=== PATIENT | male | born 1965 | race Caucasian/White ===

== ENCOUNTER 2018-04-16 00:49 | Observation (INO) ==
[2018-04-16 02:14] LABS: Basophils % 0.1 %; Eosinophils # 0.1 K/mcL (0.0-0.6); Eosinophils % 1.3 %; Hemoglobin 15.2 g/dL (12.9-16.9); Immature Granulocytes % 0.4 % (0-4); Lymphocytes # 1.3 K/mcL (0.6-4.6); Lymphocytes % 16.3 %; Mean Corpuscular HGB Conc 34.5 g/dL (31.6-35.5); Mean Corpuscular Hemoglobin 29.7 pg (28.0-33.3); Mean Corpuscular Volume 85.9 fL (83.0-100.0); Mean Platelet Volume 8.9 fL (9.4-12.4); Monocytes # 0.5 K/mcL (0.0-1.3); Monocytes % 5.6 %; Neutrophils # 6.1 K/mcL (1.6-8.9); Platelet Count 237 K/mcL (140-400); Red Blood Count 5.12 M/mcL (4.19-5.50); Segmented Neutrophils % 76.3 %
[2018-04-16 02:27] LABS: Bilirubin,Urine Negative (Negative); Blood,Urine Negative (Negative); Clarity,Urine Clear (Clear); Color,Urine Yellow (Yellow); Glucose,Urine (UA) Normal (Normal); Ketones,Urine Negative (Negative); Leukocyte Esterase,Urine Negative (Negative); Nitrite,Urine Negative (Negative); PH,Urine 6.5 pH Units (5.0-8.0); Protein,Urine Negative (Neg-Trace); Specific Gravity,Urine 1.008 (1.010-1.025); Urobilinogen,Urine Normal (Normal)
--- NOTE | 2018-04-16 02:28 | Emergency Department Note ---
Disposition Clinical Impression: Encephalopathy Chest pain Qualifiers: Chest pain type: unspecified Qualified Code(s): R07.9 - Chest pain, unspecified Disposition: Admitted As Inpatient Condition: Good Referrals: Sean Kaur DO [Primary Care Provider] - General Adult HPI - General Chief complaint: ED Shortness of Breath/Dyspnea Stated complaint: general Time Seen by Provider: 04/16/18 00:57 Source: EMS Mode of arrival: EMS Limitations: no limitations Nursing Notes Reviewed: Yes Vital Signs Reviewed: Yes - History of Present Illness HPI Narrative: 52-year-old male presents to the ER by EMS due to shortness of breath, chest pain and writing all over his face chest abdomen and arms. Patient reports he started having pain about an hour prior to arrival. Reports pain in the center of his chest and it feels heavy. He was also noted once he got here that he had writing including a patch on his chin as well as numerous words and symbols on his arms chest and abdomen. He is unsure how this got there. He states he does have a history of depression and bipolar. He is currently medicated for both reports compliance. No auditory or visual hallucinations. No suicidal or homicidal ideation. Denies any alcohol or drug abuse. No other complaints. Pt Subjective Complaint: Chest pain, shortness of breath, hendrix all over Onset (ago): hour(s) Location: chest Pain Scale: 9 Improves with: nothing Worsens with: nothing Treatments Prior to Arrival: none - Related Data Home Medications Medication Instructions Recorded Confirmed Albuterol Sulfate [Albuterol 2 mcg IH Q4HR PRN 09/05/15 08/17/16 Inhaler] Allopurinol [Zyloprim] 300 mg PO DAILY 09/05/15 08/17/16 Alprazolam [Xanax] 2 mg PO QID 09/05/15 08/17/16 Atenolol [Tenormin] 50 mg PO DAILY 09/05/15 08/17/16 Atorvastatin [Lipitor] 40 mg PO DAILY 09/05/15 08/17/16 Baclofen [Lioresal] 15 mg PO TID 09/05/15 08/17/16 Cholecalciferol (Vitamin D3) 2,000 unit PO DAILY 09/05/15 08/17/16 [Vitamin D3] Esomeprazole Magnesium [Nexium] 40 mg PO DAILY 09/05/15 08/17/16 Metformin [Glucophage] 500 mg PO HS 09/05/15 08/17/16 Omeprazole [PriLOSEC] 20 mg PO BIDAC 09/05/15 08/17/16 Testosterone Cypionate 200 mg IM Q14D 09/05/15 08/17/16 [Depo-Testosterone] Zolpidem [Ambien] 10 mg PO HS PRN 09/05/15 08/17/16 Citalopram [CeleXA] 20 mg PO HS 08/17/16 08/17/16 Furosemide [Lasix] 40 mg PO DAILY 08/17/16 08/17/16 Gabapentin [Neurontin] 1,600 mg PO Q12H 08/17/16 08/17/16 Ginkgo Biloba 120 mg PO DAILY 08/17/16 08/17/16 Levomefolate/B6/B12/Algal Oil 1 each PO BID 08/17/16 08/17/16 [Metanx Capsule] Ondansetron HCl [Zofran] 4 mg PO DAILY PRN 08/17/16 08/17/16 Oxybutynin [Ditropan] 5 mg PO BID 08/17/16 08/17/16 Previous Rx's Medication Instructions Recorded OxyCODONE Immed Rel [Roxicodone 5 5 - 10 mg PO Q6HR PRN #30 tablet 08/16/16 MG] Naproxen [Naprosyn] 500 mg PO BID #20 tablet 09/10/16 Sulfamethoxazole/Trimeth DS 1 each PO BID #14 tablet 09/10/16 [Bactrim DS] cephALEXin [Keflex] 500 mg PO QID #28 capsule 09/10/16 Cephalexin [Keflex] 500 mg PO QID #28 capsule 04/15/18 Allergies Allergy/AdvReac Type Severity Reaction Status Date / Time No Known Allergies Allergy Verified 09/10/16 08:26 Review of Systems: As Per HPI Past Medical History - Past Medical History Attestation: Yes The following information was validated with the patient. Source: patient Medical history: Reports: arthritis, diabetes, GERD, hyperlipidemia, hypertension Surgical history: Reports: herniorrhaphy, orthopedic, other, other Psychiatric history: Reports: anxiety, bipolar, depression - Social History Smoking Status: Former smoker Smokeless Tobacco Status: No Alcohol use: Reports: none Drug use: Reports: none Physical Exam - General Limitations: no limitations, altered mental status General appearance: appears intoxicated - Head Head exam: atraumatic, normocephalic - Eye Eye exam: Present: normal appearance - ENT ENT exam: normal exam - Neck Neck exam: Present: normal inspection - Chest Chest inspection: Present: normal inspection, symmetric chest wall rise - Respiratory Respiratory exam: Present: normal lung sounds bilaterally - Cardiovascular Cardiovascular exam: Present: regular rate, normal rhythm, normal heart sounds - Abdominal Exam Abdominal exam: Present: soft, Non-Tender. Absent: tenderness - Extremities Exam Extremities exam: Present: normal inspection, full ROM - Expanded Upper Extremity Exam Shoulder exam: Present: normal inspection, full ROM Arm exam: Present: normal inspection, full ROM Elbow exam: Present: normal inspection, full ROM Forearm/Wrist exam: Present: normal inspection, full ROM Hand exam: Present: normal inspection, full ROM - Expanded Lower Extremity Exam Hip/Pelvis exam: Present: normal inspection, full ROM Upper leg exam: Present: normal inspection, full ROM Knee exam: Present: normal inspection, full ROM Lower leg exam: Present: normal inspection, full ROM Ankle exam: Present: normal inspection, full ROM Foot/toe exam: Present: normal inspection, full ROM - Neurological Exam Neurological exam: Present: alert, other (GCS 15. Nonfocal.) - Psychiatric Psychiatric exam: Present: normal affect - Skin Skin exam: Present: warm, dry, other (Numerous markings over the face, arms, chest and abdomen) Course Course Narrative: Patient seen and examined. Plan to evaluate with EKG, troponin, CT of the head as well as labs. He will require psychiatric evaluation. Vital Signs Temperature 97.0 F L 04/16/18 00:57 Pulse Rate 62 04/16/18 00:57 Respiratory Rate 18 04/16/18 00:57 Blood Pressure 198/117 04/16/18 00:57 O2 Sat by Pulse Oximetry 99 04/16/18 00:57 Temperature 97.0 F L 04/16/18 00:57 Pulse Rate 62 04/16/18 00:57 Respiratory Rate 18 04/16/18 00:57 Blood Pressure 198/117 04/16/18 00:57 O2 Sat by Pulse Oximetry 99 04/16/18 00:57 Oxygen Delivery Oxygen Delivery Room Air Medical Decision Making - [facility] Narrative Medical decision making narrative: 52-year-old male presented for chest pain initially. History of depression and bipolar. Found to have waiting all over his body unsure how it got there. Given these on circumstances he will be admitted for chest pain and altered mental status as well as psychiatric evaluation. - Lab Data Lab results reviewed: Yes I reviewed the patient's lab results. Result diagrams: 04/16/18 02:06 04/16/18 02:06 Lab Results 04/16/18 04/16/18 04/16/18 Range/Units 02:06 02:06 02:06 WBC 8.0 (4.3-11.1) K/mcL RBC 5.12 (4.19-5.50) M/mcL Hgb 15.2 (12.9-16.9) g/dL Hct 44.0 (37.5-50.1) % MCV 85.9 (83.0-100.0) fL MCH 29.7 (28.0-33.3) pg MCHC 34.5 (31.6-35.5) g/dL RDW 14.0 (11.5-14.5) % Plt Count 237 (140-400) K/mcL MPV 8.9 L (9.4-12.4) fL Immature Gran % 0.4 (0-4) % Seg Neutrophils % 76.3 % Lymphocytes % 16.3 % Monocytes % 5.6 % Eosinophils % 1.3 % Basophils % 0.1 % Neutrophils # 6.1 (1.6-8.9) K/mcL Lymphocytes # 1.3 (0.6-4.6) K/mcL Monocytes # 0.5 (0.0-1.3) K/mcL Eosinophils # 0.1 (0.0-0.6) K/mcL Basophils # 0.0 (0.0-0.2) K/mcL Sodium 132 L (136-145) mEq/L Potassium 3.7 (3.5-5.1) mEq/L Chloride 97 L (98-107) mEq/L Carbon Dioxide 28 (23-29) mEq/L BUN 20 (6-20) mg/dL Creatinine 1.03 (0.70-1.30) mg/dL Est GFR ( Amer) > 60 (> 60) Est GFR (Non-Af Amer) > 60 (> 60) BUN/Creatinine Ratio 19 (6-26) Glucose 94 (70-105) mg/dL Calculated Osmolality 276 L (280-300) Calcium 9.6 (8.6-10.3) mg/dL Total Bilirubin 0.9 (0.3-1.0) mg/dL Direct Bilirubin 0.1 (0.0-0.2) mg/dL Indirect Bilirubin 0.8 (0.0-1.2) mg/dL AST 13 (13-39) Units/L ALT 10 (7-52) Units/L Alkaline Phosphatase 58 (34-104) Units/L Troponin I < 0.03 (< 0.04) ng/mL Serum Total Protein 7.1 (6.4-8.9) g/dL Albumin 4.6 (3.5-5.7) g/dL Globulin 2.5 (2.4-3.5) g/dL Albumin/Globulin Ratio 1.8 (1.1-2.2) TSH 1.360 (0.340-5.600) mcIU/mL Urine Color (Yellow) Urine Clarity (Clear) Urine pH (5.0-8.0) pH Units Ur Specific [place] (1.010-1.025) Urine Protein (Neg-Trace) mg/dL Urine Glucose (UA) (Normal) mg/dL Urine Ketones (Negative) mg/dL Urine Blood (Negative) Urine Nitrite (Negative) Urine Bilirubin (Negative) Urine Urobilinogen (Normal) mg/dL Ur Leukocyte Esterase (Negative) Salicylates < 2.5 L (15.0-30.0) mg/dL Urine Opiates Screen (Rzvoqm=094) ng/mL Acetaminophen < 10 L (10-20) mcg/mL Ur Barbiturates Screen (Tuobri=689) ng/mL Ur Phencyclidine Scrn (Cutoff=25) ng/mL Ur Amphetamines Screen (Oqmozq=7379) ng/mL U Benzodiazepines Scrn (Ywoyrz=966) ng/mL Urine Cocaine Screen (Cutoff= 300) ng/mL U Marijuana (THC) Screen (Cutoff = 50) ng/mL Ethyl Alcohol < 10 (Less than 10) mg/dL 18 04/16/18 Range/Units 02:15 02:15 WBC (4.3-11.1) K/mcL RBC (4.19-5.50) M/mcL Hgb (12.9-16.9) g/dL Hct (37.5-50.1) % MCV (83.0-100.0) fL MCH (28.0-33.3) pg MCHC (31.6-35.5) g/dL RDW (11.5-14.5) % Plt Count (140-400) K/mcL MPV (9.4-12.4) fL Immature Gran % (0-4) % Seg Neutrophils % % Lymphocytes % % Monocytes % % Eosinophils % % Basophils % % Neutrophils # (1.6-8.9) K/mcL Lymphocytes # (0.6-4.6) K/mcL Monocytes # (0.0-1.3) K/mcL Eosinophils # (0.0-0.6) K/mcL Basophils # (0.0-0.2) K/mcL Sodium (136-145) mEq/L Potassium (3.5-5.1) mEq/L Chloride (98-107) mEq/L Carbon Dioxide (23-29) mEq/L BUN (6-20) mg/dL Creatinine (0.70-1.30) mg/dL Est GFR ( Amer) (> 60) Est GFR (Non-Af Amer) (> 60) BUN/Creatinine Ratio (6-26) Glucose (70-105) mg/dL Calculated Osmolality (280-300) Calcium (8.6-10.3) mg/dL Total Bilirubin (0.3-1.0) mg/dL Direct Bilirubin (0.0-0.2) mg/dL Indirect Bilirubin (0.0-1.2) mg/dL AST (13-39) Units/L ALT (7-52) Units/L Alkaline Phosphatase (34-104) Units/L Troponin I (< 0.04) ng/mL Serum Total Protein (6.4-8.9) g/dL Albumin (3.5-5.7) g/dL Globulin (2.4-3.5) g/dL Albumin/Globulin Ratio (1.1-2.2) TSH (0.340-5.600) mcIU/mL Urine Color Yellow (Yellow) Urine Clarity Clear (Clear) Urine pH 6.5 (5.0-8.0) pH Units Ur Specific [place] 1.008 L (1.010-1.025) Urine Protein Negative (Neg-Trace) mg/dL Urine Glucose (UA) Normal (Normal) mg/dL Urine Ketones Negative (Negative) mg/dL Urine Blood Negative (Negative) Urine Nitrite Negative (Negative) Urine Bilirubin Negative (Negative) Urine Urobilinogen Normal (Normal) mg/dL Ur Leukocyte Esterase Negative (Negative) Salicylates (15.0-30.0) mg/dL Urine Opiates Screen Negative (Tjsdml=498) ng/mL Acetaminophen (10-20) mcg/mL Ur Barbiturates Screen Negative (Zyiwcv=928) ng/mL Ur Phencyclidine Scrn Negative (Cutoff=25) ng/mL Ur Amphetamines Screen Positive H (Ljffim=0921) ng/mL U Benzodiazepines Scrn Positive H (Fcorlf=942) ng/mL Urine Cocaine Screen Negative (Cutoff= 300) ng/mL U Marijuana (THC) Screen Negative (Cutoff = 50) ng/mL Ethyl Alcohol (Less than 10) mg/dL - Radiology Data Radiology results reviewed: Yes I reviewed the patient's radiology results. Head CT 04/16/18 01:55 IMPRESSION: No acute intracranial hemorrhage. No evidence of acute large vessel infarct. 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 D/ / Fidencio Nix MD / Fidencio Nix MD Interpreting Provider: Fidencio Nix MD - EKG Data EKG #1 EKG attestation: Yes I reviewed and interpreted this EKG. EKG results narrative: EKG demonstrates sinus bradycardia with rate of 59 bpm. Normal axis. Normal intervals. Normal progression. No gross ST elevations or depressions. No acute ischemic findings. S.B.A.RAb - Oneil.Noe.Mohinder Situation: Demographics, MOA Background: Presenting Complaint, Relevant PMH, Meds, & Allergies Assessment: Course and respsone to treatment, Exam Concerns, Patient/Family Expectation, Pertinant Lab Results Recommendation: Barrier(s) to disposition, Recommendation based on pending studies, treatments, or consults S.B.Mohinder Report Given to: Dr. Dinah Garrisno Repor Time: 04:13
[2018-04-16 02:36] LABS: Amphetamine Screen,Urine Positive ng/mL (Cutoff=1000); Barbiturate Screen,Urine Negative ng/mL (Cutoff=200); Benzodiazepines Screen,Urine Positive ng/mL (Cutoff=200); Cannabinoid Screen,Urine Negative ng/mL (Cutoff = 50); Cocaine Screen,Urine Negative ng/mL (Cutoff= 300); Opiate Screen,Urine Negative ng/mL (Cutoff=300); Phencyclidine Screen,Urine Negative ng/mL (Cutoff=25)
[2018-04-16 02:38] LABS: Acetaminophen < 10 mcg/mL (10-20); Alanine Aminotransferase 10 Units/L (7-52); Albumin 4.6 g/dL (3.5-5.7); Albumin/Globulin Ratio 1.8 (1.1-2.2); Alkaline Phosphatase 58 Units/L (34-104); Aspartate Amino Transferase 13 Units/L (13-39); BUN/Creatinine Ratio 19 (6-26); Bilirubin,Direct 0.1 mg/dL (0.0-0.2); Bilirubin,Indirect 0.8 mg/dL (0.0-1.2); Bilirubin,Total 0.9 mg/dL (0.3-1.0); Blood Urea Nitrogen 20 mg/dL (6-20); Calcium 9.6 mg/dL (8.6-10.3); Carbon Dioxide 28 mEq/L (23-29); Chloride 97 mEq/L (98-107); Ethanol < 10 mg/dL (Less than 10); Globulin 2.5 g/dL (2.4-3.5); Glucose 94 mg/dL (70-105); Osmolality,Calculated 276 (280-300); Potassium 3.7 mEq/L (3.5-5.1); Salicylate < 2.5 mg/dL (15.0-30.0); Sodium 132 mEq/L (136-145); Total Protein 7.1 g/dL (6.4-8.9); eGFR For African Americans > 60 (> 60); eGFR For Non-African Americans > 60 (> 60)
[2018-04-16 02:51] LABS: Thyroid Stimulating Hormone 1.36 mcIU/mL (0.340-5.600)
[2018-04-16 02:56] LABS: Troponin I < 0.03 ng/mL (< 0.04)
[2018-04-16] MEDS ORDERED: Naloxone 0.4 MG/ML INJ IVP PRN (04:01)
[2018-04-16] MEDS ORDERED: *HR* Dextrose 50 % in Water (Syg) 50 ML SYRINGE IVP PRN (04:01)
[2018-04-16] MEDS ORDERED: Dextrose Gel 15 GM/37.5 ML TUBE PO PRN ×2 (04:01)
[2018-04-16] MEDS ORDERED: D5% in Water 1,000 ML IVC PRN (04:01)
[2018-04-16] MEDS ORDERED: Acetaminophen 325 MG TABLET PO PRN (04:01)
[2018-04-16] MEDS ORDERED: Aspirin 81 MG TAB.CHEW PO ONE (04:02)
--- NOTE | 2018-04-16 04:06 | Internal Med History&Physical ---
<Deidra Doe M - Last Filed: 04/16/18 04:19> Date of Encounter: 04/16/18 Time of Encounter: 04:05 Internal Medicine - H&P: HPI Chief complaint: Chest pain/shortness of breath Admitted From: Emergency Dept Plans for Post Hospital Care: Home History of present illness: Mr. Ramos is a 52 year old male with history of DM, GERD, HLD, HTN, multiple psych disorders, substance abuse who was transferred to the ED by EMS with complaints of feeling dehydrated and short of breath. He also complained of chest burning sensation. He has writings in markers all over his upper body and he is not aware how he ended up with those. He thinks he wrote them himself. I can't make out any meaning to the writing. He is nauseated and is spitting up into a bag in the ED. No abdominal pain. He is somewhat altered and seems to be under the influence of some substance. He is exhibiting signs of psychosis as he is talking about messages from God. He is not suicidal. His UDS was + for benzos and amphetamine. He denies drug use. He does takes Xanax at home. EKG and trops unremarkable. Labs unremarkable including LFTs. No lipase checked in the ED. BP is mildly elevated and he is not hypoxic. 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 The patient was in the ED yesterday with hallucinations. His urine drug screen was also positive for meth and benzos yesterday as well. He was evaluated by psychiatry yesterday and cleared for discharge after he was initially pink slipped in the ED. Past Med Surg Social Fam HX - Past Medical History Medical history: arthritis, diabetes, GERD, hyperlipidemia, hypertension Additional medical history: sleep apnea Psychiatric history: anxiety, bipolar, depression - Past Surgical History Surgical History: herniorrhaphy, orthopedic, other, other Additional surgical history: nose surgery, throat surgery, hernia repair, foot surgery, tongue surgery, prostate surgery, shoulder surgery - Social History Smoking Status: Former smoker Smokeless Tobacco Status: No Alcohol use: none Drug use: none Internal Medicine - H&P: Meds Cholecalciferol (Vitamin D3) [Vitamin D3] 2,000 unit PO DAILY 09/05/15 [History] Esomeprazole Magnesium [Nexium] 40 mg PO DAILY 09/05/15 [History] Testosterone Cypionate [Depo-Testosterone] 200 mg IM Q14D 09/05/15 [History] OxyCODONE Immed Rel [Roxicodone 5 MG] 5 - 10 mg PO Q6HR PRN #30 tablet 08/16/16 [Rx] Citalopram [CeleXA] 20 mg PO HS 08/17/16 [History] Furosemide [Lasix] 40 mg PO DAILY 08/17/16 [History] Gabapentin [Neurontin] 1,600 mg PO Q12H 08/17/16 [History] Ginkgo Biloba 120 mg PO DAILY 08/17/16 [History] Levomefolate/B6/B12/Algal Oil [Metanx Capsule] 1 each PO BID 08/17/16 [History] Ondansetron HCl [Zofran] 4 mg PO DAILY PRN 08/17/16 [History] Oxybutynin [Ditropan] 5 mg PO BID 08/17/16 [History] Naproxen [Naprosyn] 500 mg PO BID #20 tablet 09/10/16 [Rx] Cephalexin [Keflex] 500 mg PO QID #28 capsule 04/15/18 [Rx] Allopurinol [Zyloprim 300 MG] 300 mg PO DAILY 04/16/18 [History] Alprazolam [Xanax] 2 mg PO QID 04/16/18 [History] Atenolol [Atenolol] 50 mg PO DAILY 04/16/18 [History] Baclofen [Lioresal] 15 mg PO TID 04/16/18 [History] Metformin HCl [Metformin HCl] 500 mg PO HS 04/16/18 [History] Omeprazole [PriLOSEC] 20 mg PO BIDAC 04/16/18 [History] Rosuvastatin Calcium [Rosuvastatin Calcium] 5 mg PO DAILY 04/16/18 [History] cloNIDine HCl [CloNIDine HCl] 0.1 mg PO BID 04/16/18 [History] lamoTRIgine [Lamictal] 100 mg PO DAILY 04/16/18 [History] 3 Allergy/AdvReac Type Severity Reaction Status Date / Time No Known Allergies Allergy Verified 09/10/16 08:26 ROS unobtainable: due to mental status All Systems PM: A 10-system review of systems was performed and is negative for pertinent findings except as documented above in the HPI. - Constitutional Vitals: Temp Pulse Resp BP Pulse Ox 97.0 F L 62 18 198/117 99 04/16/18 00:57 04/16/18 00:57 04/16/18 00:57 04/16/18 00:57 04/16/18 00:57 Internal Med - H&P Results - Labs CBC & Chem 7: 04/16/18 02:06 04/16/18 02:06 Labs: Short CBC 04/16/18 Range/Units 02:06 WBC 8.0 (4.3-11.1) K/mcL Hgb 15.2 (12.9-16.9) g/dL Hct 44.0 (37.5-50.1) % Plt Count 237 (140-400) K/mcL Neutrophils # 6.1 (1.6-8.9) K/mcL BMP 04/16/18 02:06 Sodium 132 L Potassium 3.7 Chloride 97 L Carbon Dioxide 28 BUN 20 Creatinine 1.03 Glucose 94 Calcium 9.6 Cardiac Enzymes 04/16/18 Range/Units 02:06 Troponin I < 0.03 (< 0.04) ng/mL Liver Function 04/16/18 Range/Units 02:06 Total Bilirubin 0.9 (0.3-1.0) mg/dL Direct Bilirubin 0.1 (0.0-0.2) mg/dL AST 13 (13-39) Units/L ALT 10 (7-52) Units/L Alkaline Phosphatase 58 (34-104) Units/L Albumin 4.6 (3.5-5.7) g/dL Urine 04/16/18 Range/Units 02:15 Urine Color Yellow (Yellow) Urine Clarity Clear (Clear) Urine pH 6.5 (5.0-8.0) pH Units Ur Specific [place] 1.008 L (1.010-1.025) Urine Protein Negative (Neg-Trace) mg/dL Urine Glucose (UA) Normal (Normal) mg/dL - Impressions ITS Impressions Head CT 04/16/18 01:55 IMPRESSION: No acute intracranial hemorrhage. No evidence of acute large vessel infarct. 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 D/ / Fidencio Nix MD / Fidencio Nix MD Interpreting Provider: Fidencio Nix MD - Assessment and plan (1) Nausea Current Visit: Yes Status: Acute Assessment and plan: Likely secondary to substance abuse. We will check lipase. LFTs are normal. He has no abdominal tenderness whatsoever on exam. No need for CT abdomen and pelvis. We will treat him with antiemetics and IV fluids for now. (2) Chest pain Current Visit: Yes Status: Acute Assessment and plan: Nonspecific chest pain/burning. Possibly GI related. He does have some nausea. We will start the patient on PPI as well as Tums. Trend cardiac enzymes for now. Check A1c and lipid panel. Qualifiers: Chest pain type: unspecified Qualified Code(s): R07.9 - Chest pain, unspecified (3) Encephalopathy Current Visit: Yes Status: Acute Assessment and plan: I believe the patient presentation was likely secondary to his psychiatric disorders exacerbated by substance abuse likely amphetamine. CT head showed some chronic findings. TSH is normal. I believe the patient can be monitored for now and discharged once his nausea/chest discomfort resolved. Psychiatry was consulted in the ED. (4) Diabetes Current Visit: No Status: Chronic Assessment and plan: Insulin sliding scale. Accu-Cheks. Qualifiers: Diabetes mellitus type: type 2 Diabetes mellitus jail insulin use: unspecified jail insulin use status Diabetes mellitus complication status : with unspecified complications Qualified Code(s): E11.8 - Type 2 diabetes mellitus with unspecified complications (5) DVT prophylaxis Current Visit: Yes Status: Acute Assessment and plan: Heparin subcutaneous (6) Psychiatric disorder Current Visit: Yes Status: Acute Assessment and plan: Resume antipsychotics. Patient is not suicidal. Was evaluated by psychiatry yesterday with similar presentation was cleared home. Psych consulted in the ED. - Time Spent With Patient Total time spent is greater than 50% in coordination of care (as documented) at patient's floor/unit and/or counseling patient: <Enrique Malone Yordy - Last Filed: 04/16/18 15:50> Date of Encounter: 04/16/18 Internal Medicine - H&P: HPI History of present illness: Mr. Ramos is a 52 year old male All Systems PM: A 10-system review of systems was performed and is negative for pertinent findings except as documented above in the HPI. - Constitutional Vitals: Temp Pulse Resp BP Pulse Ox 97.4 F L 63 20 162/92 98 04/16/18 15:00 04/16/18 15:00 04/16/18 15:00 04/16/18 15:00 04/16/18 15:00 Internal Med - H&P Results - Labs CBC & Chem 7: 04/16/18 02:06 04/16/18 02:06 Labs: Cardiac Enzymes 04/16/18 Range/Units 09:08 Troponin I < 0.03 (< 0.04) ng/mL - Attending Attestation My partner's H&P above is appreciated. H&P remains mildly confused and is unclear why he is here. Blood pressure remains mildly elevated. Patient has no specific complaints. He does not have any recall how he wound up here except to say that an ambulance brought him here. I discussed his abnormal head CT and he states he had an issue with similar abnormal CT of the head in the past. Patient currently has a nonfocal neurological exam although he is very anxious and jittery. He adamantly denies alcohol use. You are still awaiting psychiatry input. Patient denies any suicidal ideation. We will continue to monitor for now. Continue gentle IV fluids. All else as per my partner's note - Assessment and plan (1) Diabetes Current Visit: No Status: Chronic Qualifiers: Diabetes mellitus type: type 2 Diabetes mellitus jail insulin use: unspecified jail insulin use status Diabetes mellitus complication status : with unspecified complications Qualified Code(s): E11.8 - Type 2 diabetes mellitus with unspecified complications (2) Chest pain Current Visit: Yes Status: Acute Qualifiers: Chest pain type: unspecified Qualified Code(s): R07.9 - Chest pain, unspecified (3) Encephalopathy Current Visit: Yes Status: Acute (4) DVT prophylaxis Current Visit: Yes Status: Acute (5) Nausea Current Visit: Yes Status: Acute (6) Psychiatric disorder Current Visit: Yes Status: Acute - Time Spent With Patient Total time spent is greater than 50% in coordination of care (as documented) at patient's floor/unit and/or counseling patient:
[2018-04-16] MEDS ORDERED: Ondansetron 4 MG/2 ML VIAL IVP PRN (04:32)
[2018-04-16] MEDS: *HR* Heparin 5,000 UNIT/ML VIAL SQ SCH ×3 (05:34→22:59)
[2018-04-16] MEDS: 0.9 % Sodium Chloride 1,000 ML IVC SCH ×2 (05:34→19:39)
[2018-04-16 05:47] LABS: Chol/HDL Ratio 3.3 (0-4.9)
[2018-04-16] MEDS: Insulin LISPRO 300 UNITS/3 ML VIAL SQ SCH ×4 (06:26→23:05)
[2018-04-16 06:40] LABS: Estimated Average Glucose 108 mg/dl; Hemoglobin A1C 5.4 %
[2018-04-16] MEDS ORDERED: ALPRAZolam 1 MG TABLET PO SCH (16:00)
[2018-04-16] MEDS: ALPRAZolam 1 MG TABLET PO SCH ×3 (16:43→21:28)
[2018-04-17] MEDS: *HR* Heparin 5,000 UNIT/ML VIAL SQ SCH ×2 (05:36→14:08)
[2018-04-17] MEDS: Insulin LISPRO 300 UNITS/3 ML VIAL SQ SCH ×2 (05:41→14:08)
[2018-04-17] MEDS: ALPRAZolam 1 MG TABLET PO SCH ×2 (09:54→14:04)
[2018-04-17 11:45] VITALS: BP 157/99
--- NOTE | 2018-04-17 13:19 | Consult Note ---
Date of Encounter: 04/17/18 Time of Encounter: 12:45 Assessment & Recommendation (1) Altered mental status Current visit: No Status: Acute Assessment & Recommendation: 1. Patient can restart his medication after verification 2. Patient need to follow-up as outpatient with his psychiatrist and counselor 3. From psychiatric standpoint, patient is stable to discharge when medically clear. Thank you for consultation Qualifiers: Altered mental status type: unspecified Qualified Code(s): R41.82 - Altered mental status, unspecified (2) Amphetamine abuse Current visit: Yes Status: Acute History of Present Illness Patient: new to practice Requesting Physician: Haley Nix MD Reason for consult: Bipolar, change in mental status History of present illness: Mr. Ramos is a 52 year old male admitted to the hospital medical service with multiple complaints including dehydration, chest pain, nausea and vomiting and change in mental status. Psychiatric consultation was requested to evaluate patient history of bipolar disorder with possible noncompliance. UDS was positive for amphetamine and benzodiazepine. Patient was reported to have retain with a marker all over his body nonsensical words. When I went to see him writing was washed off and I could not see it. Patient is aware of his home medication and claimed that his taken them on review of the system they include Lamictal, clonidine, gabapentin, citalopram and Xanax. With her patient is compliant cannot be determined at this time. Patient was alert pleasant and friendly did not present any hallucination or delusion or psychosis did not present any thoughts of suicide or self-harm when I ask him about positive tests for amphetamine and benzodiazepine he tell me he did not know maybe somebody put it in his system. He was aware that he has a psychiatrist and counselor appointments at the mental health's clinic this month but was not sure of the day. CC: Haley Nix MD Past Med Surg Social Fam HX - Past Medical History Medical history: arthritis, diabetes, GERD, hyperlipidemia, hypertension - Past Psychiatric History Psychiatric history: Reports: bipolar - Past Surgical History Surgical History: herniorrhaphy, orthopedic, other, other - Social History Smoking Status: Former smoker Smokeless Tobacco Status: No Alcohol use: none Drug use: none Medications & Allergies Cholecalciferol (Vitamin D3) [Vitamin D3] 2,000 unit PO DAILY 09/05/15 [History] Esomeprazole Magnesium [Nexium] 40 mg PO DAILY 09/05/15 [History] Testosterone Cypionate [Depo-Testosterone] 200 mg IM Q14D 09/05/15 [History] OxyCODONE Immed Rel [Roxicodone 5 MG] 5 - 10 mg PO Q6HR PRN #30 tablet 08/16/16 [Rx] Citalopram [CeleXA] 20 mg PO HS 08/17/16 [History] Furosemide [Lasix] 40 mg PO DAILY 08/17/16 [History] Gabapentin [Neurontin] 1,600 mg PO Q12H 08/17/16 [History] Ginkgo Biloba 120 mg PO DAILY 08/17/16 [History] Levomefolate/B6/B12/Algal Oil [Metanx Capsule] 1 each PO BID 08/17/16 [History] Ondansetron HCl [Zofran] 4 mg PO DAILY PRN 08/17/16 [History] Oxybutynin [Ditropan] 5 mg PO BID 08/17/16 [History] Naproxen [Naprosyn] 500 mg PO BID #20 tablet 09/10/16 [Rx] Cephalexin [Keflex] 500 mg PO QID #28 capsule 04/15/18 [Rx] Allopurinol [Zyloprim 300 MG] 300 mg PO DAILY 04/16/18 [History] Alprazolam [Xanax] 2 mg PO QID 04/16/18 [History] Atenolol [Atenolol] 50 mg PO DAILY 04/16/18 [History] Baclofen [Lioresal] 15 mg PO TID 04/16/18 [History] Metformin HCl [Metformin HCl] 500 mg PO HS 04/16/18 [History] Omeprazole [PriLOSEC] 20 mg PO BIDAC 04/16/18 [History] Rosuvastatin Calcium [Rosuvastatin Calcium] 5 mg PO DAILY 04/16/18 [History] cloNIDine HCl [CloNIDine HCl] 0.1 mg PO BID 04/16/18 [History] lamoTRIgine [Lamictal] 100 mg PO DAILY 04/16/18 [History] 3 Allergy/AdvReac Type Severity Reaction Status Date / Time No Known Allergies Allergy Verified 09/10/16 08:26 Psychiatry Exam - Constitutional Vitals: Temp Pulse Resp BP Pulse Ox 98.4 F 100 16 157/99 96 04/17/18 11:44 04/17/18 11:44 04/17/18 11:44 04/17/18 11:44 04/17/18 11:44 General appearance: age & developmentally appropriate, well-nourished, disheveled, average - Musculoskeletal Gait: normal Station: relaxed Strength & Tone: normal for patient - Psychiatric Patient Orientation: Yes Person, Yes Time, Yes Place Level of alertness: Alert Behavior: calm, cooperative, talkative Psychomotor activity: Normal Eye Contact: Maintains Eye Contact Mood Description: Euthymic/stable, Euphoric Affect description: congruent with mood, euphoric Speech Volume: Normal Speech pattern: normal rate, normal rhythm, normal tone, fluent, spontaneous Language & Vocabulary: consistent with education Thought Process: Linear, Goal Oriented Thought Content: No Suicidal ideation, No Homicidal ideation, No Overt delusions Perceptual Disturbances: No Auditory hallucinations, No Visual hallucinations Attention Span Ability: Capable of Focused Attention Memory Description: Grossly Intact Patient Reliability: Questionable Historian Fund of knowledge: Yes abstraction ability, Yes aware of current events Intelligence Estimate: Average Judgment: Limited Insight: Partial Results - Labs Labs: Laboratory Last Values WBC 8.0 K/mcL (4.3-11.1) 04/16/18 02:06 RBC 5.12 M/mcL (4.19-5.50) 04/16/18 02:06 Hgb 15.2 g/dL (12.9-16.9) 04/16/18 02:06 Hct 44.0 % (37.5-50.1) 04/16/18 02:06 MCV 85.9 fL (83.0-100.0) 04/16/18 02:06 MCH 29.7 pg (28.0-33.3) 04/16/18 02:06 MCHC 34.5 g/dL (31.6-35.5) 04/16/18 02:06 RDW 14.0 % (11.5-14.5) 04/16/18 02:06 Plt Count 237 K/mcL (140-400) 04/16/18 02:06 MPV 8.9 fL (9.4-12.4) L 04/16/18 02:06 Immature Gran % 0.4 % (0-4) 04/16/18 02:06 Seg Neutrophils % 76.3 % 04/16/18 02:06 Lymphocytes % 16.3 % 04/16/18 02:06 Monocytes % 5.6 % 04/16/18 02:06 Eosinophils % 1.3 % 04/16/18 02:06 Basophils % 0.1 % 04/16/18 02:06 Neutrophils # 6.1 K/mcL (1.6-8.9) 04/16/18 02:06 Lymphocytes # 1.3 K/mcL (0.6-4.6) 04/16/18 02:06 Monocytes # 0.5 K/mcL (0.0-1.3) 04/16/18 02:06 Eosinophils # 0.1 K/mcL (0.0-0.6) 04/16/18 02:06 Basophils # 0.0 K/mcL (0.0-0.2) 04/16/18 02:06 Sodium 132 mEq/L (136-145) L 04/16/18 02:06 Potassium 3.7 mEq/L (3.5-5.1) 04/16/18 02:06 Chloride 97 mEq/L (98-107) L 04/16/18 02:06 Carbon Dioxide 28 mEq/L (23-29) 04/16/18 02:06 BUN 20 mg/dL (6-20) 04/16/18 02:06 Creatinine 1.03 mg/dL (0.70-1.30) 04/16/18 02:06 Est GFR ( Amer) > 60 (> 60) 04/16/18 02:06 Est GFR (Non-Af Amer) > 60 (> 60) 04/16/18 02:06 BUN/Creatinine Ratio 19 (6-26) 04/16/18 02:06 Glucose 94 mg/dL (70-105) 04/16/18 02:06 POC Glucose 72 mg/dL (70-99) 04/16/18 06:11 Est Mean Plasma Glucose 108 mg/dl 04/16/18 04:00 Hemoglobin A1c 5.4 % (-5.6) 04/16/18 04:00 Calculated Osmolality 276 (280-300) L 04/16/18 02:06 Calcium 9.6 mg/dL (8.6-10.3) 04/16/18 02:06 Total Bilirubin 0.9 mg/dL (0.3-1.0) 04/16/18 02:06 Direct Bilirubin 0.1 mg/dL (0.0-0.2) 04/16/18 02:06 Indirect Bilirubin 0.8 mg/dL (0.0-1.2) 04/16/18 02:06 AST 13 Units/L (13-39) 04/16/18 02:06 ALT 10 Units/L (7-52) 04/16/18 02:06 Alkaline Phosphatase 58 Units/L (34-104) 04/16/18 02:06 Troponin I < 0.03 ng/mL (< 0.04) 04/16/18 15:09 B-Natriuretic Peptide 69 pg/mL (Less than 100) 04/16/18 02:06 Serum Total Protein 7.1 g/dL (6.4-8.9) 04/16/18 02:06 Albumin 4.6 g/dL (3.5-5.7) 04/16/18 02:06 Globulin 2.5 g/dL (2.4-3.5) 04/16/18 02:06 Albumin/Globulin Ratio 1.8 (1.1-2.2) 04/16/18 02:06 Triglycerides 59 mg/dL (< 150) 04/16/18 02:06 Cholesterol 154 mg/dL (< 200) 04/16/18 02:06 LDL Cholesterol, Calc 96 mg/dL (0-99) 04/16/18 02:06 VLDL Cholesterol, Calc 12 mg/dL (< 31) 04/16/18 02:06 HDL Cholesterol 46 mg/dL (40-59) 04/16/18 02:06 Cholesterol/HDL Ratio 3.3 (0-4.9) 04/16/18 02:06 Lipase 61 Units/L (11-82) 04/16/18 02:06 TSH 1.360 mcIU/mL (0.340-5.600) 04/16/18 02:06 Urine Color Yellow (Yellow) 04/16/18 02:15 Urine Clarity Clear (Clear) 04/16/18 02:15 Urine pH 6.5 pH Units (5.0-8.0) 04/16/18 02:15 Ur Specific [place] 1.008 (1.010-1.025) L 04/16/18 02:15 Urine Protein Negative mg/dL (Neg-Trace) 04/16/18 02:15 Urine Glucose (UA) Normal mg/dL (Normal) 04/16/18 02:15 Urine Ketones Negative mg/dL (Negative) 04/16/18 02:15 Urine Blood Negative (Negative) 04/16/18 02:15 Urine Nitrite Negative (Negative) 04/16/18 02:15 Urine Bilirubin Negative (Negative) 04/16/18 02:15 Urine Urobilinogen Normal mg/dL (Normal) 04/16/18 02:15 Ur Leukocyte Esterase Negative (Negative) 04/16/18 02:15 Salicylates < 2.5 mg/dL (15.0-30.0) L 04/16/18 02:06 Urine Opiates Screen Negative ng/mL (Xqgjgn=403) 04/16/18 02:15 Acetaminophen < 10 mcg/mL (10-20) L 04/16/18 02:06 Ur Barbiturates Screen Negative ng/mL (Lboomp=798) 04/16/18 02:15 Ur Phencyclidine Scrn Negative ng/mL (Cutoff=25) 04/16/18 02:15 Ur Amphetamines Screen Positive ng/mL (Yujnas=8302) H 04/16/18 02:15 U Benzodiazepines Scrn Positive ng/mL (Hnwzaa=424) H 04/16/18 02:15 Urine Cocaine Screen Negative ng/mL (Cutoff= 300) 04/16/18 02:15 U Marijuana (THC) Screen Negative ng/mL (Cutoff = 50) 04/16/18 02:15 Ethyl Alcohol < 10 mg/dL (Less than 10) 04/16/18 02:06 Consult Discharge Plan - Plan
--- NOTE | 2018-04-17 14:54 | Discharge Summary ---
Date of Encounter: 04/17/18 Time of Encounter: 11:00 - Discharge Diagnosis (1) Encephalopathy Priority: Primary Status: Acute Assessment and Plan: I believe the patient presentation was likely secondary to his psychiatric disorders exacerbated by substance abuse likely amphetamine. CT head showed some chronic findings. TSH is normal. I believe the patient can be monitored for now and discharged once his nausea/chest discomfort resolved. Psychiatry was consulted in the ED. 63: Resolved. Likely due to polysubstance abuse. (2) Diabetes Priority: Secondary Status: Chronic Assessment and Plan: Insulin sliding scale. Accu-Cheks. Blood Sugar reasonable control in 72-128 range. Follow up with PCP. Qualifiers: Diabetes mellitus type: type 2 Diabetes mellitus long-term insulin use: unspecified moth exterminator insulin use status Diabetes mellitus complication status : with unspecified complications Qualified Code(s): E11.8 - Type 2 diabetes mellitus with unspecified complications (3) Chest pain Priority: Secondary Status: Acute Assessment and Plan: Nonspecific chest pain/burning. Possibly GI related. He does have some nausea. We will start the patient on PPI as well as Tums. Trend cardiac enzymes for now. 6: Resolved. Doubt cardiac etiology. Follow up with PCP if recurs Qualifiers: Chest pain type: unspecified Qualified Code(s): R07.9 - Chest pain, unspecified (4) DVT prophylaxis Priority: Secondary Status: Acute (5) Nausea Priority: Secondary Status: Acute Assessment and Plan: Likely secondary to substance abuse. We will check lipase. LFTs are normal. He has no abdominal tenderness whatsoever on exam. No need for CT abdomen and pelvis. We will treat him with antiemetics and IV fluids for now. 6: Resolved (6) Psychiatric disorder Priority: Secondary Status: Acute Assessment and Plan: Resume antipsychotics. Patient is not suicidal. Was evaluated by psychiatry yesterday with similar presentation was cleared home. Psych consulted in the ED. 04/17: Seen by psychiatry today. Patient felt stable for discharge from psychiatric standpoint. Echo and continue his home medications as before. Follow-up with his outpatient psychiatrist and counselor. Hospital course: Mr. Ramos is a 52 year old male with history of DM, GERD, HLD, HTN, multiple psych disorders, substance abuse who was transferred to the ED by EMS with complaints of feeling dehydrated and short of breath. He also complained of chest burning sensation. He has writings in markers all over his upper body and he is not aware how he ended up with those. He thinks he wrote them himself. I can't make out any meaning to the writing. He is nauseated and is spitting up into a bag in the ED. No abdominal pain. He is somewhat altered and seems to be under the influence of some substance. He is exhibiting signs of psychosis as he is talking about messages from God. He is not suicidal. His UDS was + for benzos and amphetamine. He denies drug use. He does takes Xanax at home. EKG and trops unremarkable. Labs unremarkable including LFTs. No lipase checked in the ED. BP is mildly elevated and he is not hypoxic. 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 The patient was in the ED yesterday with hallucinations. His urine drug screen was also positive for meth and benzos yesterday as well. He was evaluated by psychiatry yesterday and cleared for discharge after he was initially pink slipped in the ED. 04/17: Patient had an uneventful hospital course. His encephalopathy resolved. He was also be due to substance abuse. No evidence of infection identified. Asked the patient about the abnormal CT of his head and he stated that he has had similar abnormalities in the past. He will follow this up with his primary care provider. Patient was seen by by psychiatry Dr. Leger on day of discharge. Recommend continuing all his home medications. Pt was stable for discharge. He adamantly denied any suicidal ideology. Pt was advised to stay away from any medications not prescribed by his physician. Pt was advised to avoid any illicit drugs. Patient was counseled, patient was told that he could have multiple adverse effects of using these medications including . Patient voiced understanding of this. In addition to his psychiatrist and counselor, recommend he see an addiction medicine's specialist. Discharge discussed with: patient - Time Spent with Patient Total time spent providing and/or coordinating discharge services: Less than 30 minutes - Discharge Medications Home Medications: Cholecalciferol (Vitamin D3) [Vitamin D3] 2,000 unit PO DAILY 09/05/15 [History] Esomeprazole Magnesium [Nexium] 40 mg PO DAILY 09/05/15 [History] Testosterone Cypionate [Depo-Testosterone] 200 mg IM Q14D 09/05/15 [History] OxyCODONE Immed Rel [Roxicodone 5 MG] 5 - 10 mg PO Q6HR PRN #30 tablet 08/16/16 [Rx] Citalopram [CeleXA] 20 mg PO HS 08/17/16 [History] Furosemide [Lasix] 40 mg PO DAILY 08/17/16 [History] Gabapentin [Neurontin] 1,600 mg PO Q12H 08/17/16 [History] Ginkgo Biloba 120 mg PO DAILY 08/17/16 [History] Levomefolate/B6/B12/Algal Oil [Metanx Capsule] 1 each PO BID 08/17/16 [History] Ondansetron HCl [Zofran] 4 mg PO DAILY PRN 08/17/16 [History] Oxybutynin [Ditropan] 5 mg PO BID 08/17/16 [History] Naproxen [Naprosyn] 500 mg PO BID #20 tablet 09/10/16 [Rx] Cephalexin [Keflex] 500 mg PO QID #28 capsule 04/15/18 [Rx] Allopurinol [Zyloprim 300 MG] 300 mg PO DAILY 04/16/18 [History] Alprazolam [Xanax] 2 mg PO QID 04/16/18 [History] Atenolol [Atenolol] 50 mg PO DAILY 04/16/18 [History] Baclofen [Lioresal] 15 mg PO TID 04/16/18 [History] Metformin HCl [Metformin HCl] 500 mg PO HS 04/16/18 [History] Omeprazole [PriLOSEC] 20 mg PO BIDAC 04/16/18 [History] Rosuvastatin Calcium [Rosuvastatin Calcium] 5 mg PO DAILY 04/16/18 [History] cloNIDine HCl [CloNIDine HCl] 0.1 mg PO BID 04/16/18 [History] lamoTRIgine [Lamictal] 100 mg PO DAILY 04/16/18 [History] Allergies/Adverse Reactions: 3 Allergy/AdvReac Type Severity Reaction Status Date / Time No Known Allergies Allergy Verified 09/10/16 08:26 Date of admission: 04/16/18 05:08 Primary care physician: Jose Parkinson Consults: Psychiatry Dr. Leger Discharging clinician: Enrique Malone Anticipated date of discharge: 04/17/18 - Constitutional Vitals: Temp Pulse Resp BP Pulse Ox 98.4 F 100 16 157/99 96 04/17/18 11:44 04/17/18 11:44 04/17/18 11:44 04/17/18 11:44 04/17/18 11:44 General appearance: Present: A&O X 3, no acute distress - Head Head exam: Present: atraumatic, normocephalic - Eye Eye exam: Present: PERRL, conjuntiva pink, sclera anicteric Pupils: Present: PERRL - Neck Neck exam general surgery: Present: supple, trachea midline. Absent: lymphadenopathy - Respiratory Respiratory exam: Present: CTAB. Absent: accessory muscle use, rales, rhonchi, wheezes - Cardiovascular Cardiovascular exam: Present: RRR, +S1, +S2. Absent: diastolic murmur, gallop, rubs, systolic murmur - GI/Abdominal GI/Abdominal exam: Present: normal bowel sounds, soft, no peritoneal signs. Absent: distended, tenderness - Extremities Exam Extremities exam: Present: warm, radial pulses palpable and symmetrical. Absent : calf tenderness, cyanotic, pedal edema - Neurological Exam Neurological exam: Present: CN II-XII intact, oriented X3, no focal deficits. Absent: pronater drift, facial droop, speech deficit - Skin Skin exam: Present: dry, intact - Patient Status Disposition: Home, Self-Care Condition: Good - Discharge Instructions Instructions: Methamphetamine Abuse (GEN) Follow Up With: Sean Kaur DO [Primary Care Provider] - Forms: ED Satisfaction Letter - Diet and Activity Activity: increase activity as tolerated Diet: advance to your usual diet
--- NOTE | 2018-04-19 15:58 | Electrocardiograph Report ---
[place] [id number] Test Date: 2018-04-16 Pat Name: Oumar Ramos Department: 103 Room: 3A23 Gender: M Seismograph Computer: : [id number] Requested By: Michael Alvarenga Order Number: [id number] Reading MD: Edson Gresham Measurements Intervals [place] Rate: 59 P: 17 VA: 156 QRS: 38 QRSD: 88 T: 38 QT: 403 QTc: 401 Interpretive Statements SINUS BRADYCARDIA Electronically Signed On 04-19-2018 15:56:18 EDT by Edson Gresham
== END 2018-04-17 15:30 | disposition home or self-care (01) ==
LOC: EMEROO 00:49 → 3ANU 00:49
PROVIDERS: ADMIT Internal Medicine; ATTEND Internal Medicine